=== PATIENT | male | born 1970 | race Caucasian/White ===

== ENCOUNTER 2020-03-19 19:59 | Emergency (ER) | payer MEDICARE, MEDICAID ==
[~2020-03-19] VITALS: Ht 177.8 cm; Wt 63.0 kg
[2020-03-19] MEDS ORDERED: OLANZAPINE 10 MG/VIAL IM ONE ×2 (21:30→23:30)
[2020-03-19 22:26] LABS: *AMPHETAMINES SCREEN URINE NEGATIVE (NEGATIVE); *BARBITURATES SCREEN URINE NEGATIVE (NEGATIVE); *BENZODIAZEPINES SCREEN URINE NEGATIVE (NEGATIVE); *COCAINE SCREEN URINE NEGATIVE (NEGATIVE); CANNABINOID URINE SCREEN NEGATIVE (NEGATIVE)
[2020-03-19 22:27] LABS: METHADONE URINE SCREEN NEGATIVE (NEGATIVE); OPIATES URINE SCREEN NEGATIVE (NEGATIVE); PHENCYCLIDINE URINE SCREEN NEGATIVE (NEGATIVE)
[2020-03-19] MEDS ORDERED: HALOPERIDOL LACTATE 5MG/ML VIAL IM ONE (23:30)
[2020-03-20] MEDS ORDERED: HALOPERIDOL LACTATE 5MG/ML VIAL IM ONE (01:15)
[2020-03-20 01:52] LABS: BASOPHILS % 0.8 % (0.0-2.0); EOSINOPHILS % 0.9 % (0.0-5.0); HEMATOCRIT. 45.2 % (42.0-52.0); HEMOGLOBIN. 15.4 g/dL (14.0-18.0); LYMPHOCYTES % 24.2 % (20.0-50.0); MEAN CORPUSCULAR HEMOGLOBIN 30.7 pg (28.0-32.0); MEAN PLATELET VOLUME 7.9 fl (7.4-10.4); MONOCYTES % 13.4 % (2.0-8.0); NEUTROPHILS % 60.7 % (40.0-76.0); PLATELET 255 x1000/uL (130-400); RED BLOOD CELL COUNT 5.03 mill/uL (4.7-6.1); RED CELL DISTRIBUTION WIDTH 14.4 % (11.6-14.6)
[2020-03-20 01:59] LABS: CHLORIDE 106 mEq/L (98-107)
[2020-03-20 02:03] LABS: ETHANOL BLOOD < 10 mg/dL
[2020-03-20] MEDS ORDERED: DIPHENHYDRAMINE 50MG/ML VIAL IM ONE (03:00)
[2020-03-20] MEDS ORDERED: KETOROLAC 60MG/2ML VIAL IM ONE (05:15)
[2020-03-20] MEDS: OLANZAPINE 10MG TABLET PO SCH ×2 (10:15→22:29)
[2020-03-20] MEDS ORDERED: LORAZEPAM 1MG TABLET PO ONE ×2 (10:15→10:30)
[2020-03-20] MEDS ORDERED: ARIPIPRAZOLE 2MG TABLET PO NR (17:00)
[2020-03-20] MEDS ORDERED: LORAZEPAM 2MG/ML CPJ IM NR (18:15)
[2020-03-20] MEDS ORDERED: HALOPERIDOL LACTATE 5MG/ML VIAL IM NR (18:15)
[2020-03-20] MEDS ORDERED: DIPHENHYDRAMINE 50MG/ML VIAL IM NR (18:15)
[2020-03-20] MEDS ORDERED: OLANZAPINE 10 MG/VIAL IM ONE (21:45)
[2020-03-21] MEDS ORDERED: HALOPERIDOL LACTATE 5MG/ML VIAL IM ONE (01:30)
[2020-03-21] MEDS ORDERED: KETAMINE HCL 50 MG/ML 10ML IM ONE ×3 (01:30→13:30)
[2020-03-21] MEDS ORDERED: IBUPROFEN 200MG TABLET PO ONE (10:45)
[2020-03-21] MEDS ORDERED: IBUPROFEN 600MG TABLET PO ONE (20:45)
[2020-03-21] MEDS ORDERED: OLANZAPINE 10 MG/VIAL IM ONE (21:30)
[2020-03-22] MEDS ORDERED: DIPHENHYDRAMINE 50MG CAPSULE PO ONE (00:30)
[2020-03-22] MEDS ORDERED: DIPHENHYDRAMINE 50MG/ML VIAL IM PRN (01:30)
[2020-03-22] MEDS ORDERED: HALOPERIDOL LACTATE 5MG/ML VIAL IM ONE (01:30)
[2020-03-22] MEDS ORDERED: IBUPROFEN 600MG TABLET PO STA ×2 (08:35→08:48)
[2020-03-22] MEDS: OLANZAPINE 10MG TABLET PO SCH (08:54)
[2020-03-22] MEDS ORDERED: LORAZEPAM 2MG/ML CPJ IM STA (12:22)
[2020-03-22] MEDS ORDERED: OLANZAPINE 10 MG/VIAL IM ONE (12:30)
[2020-03-22 14:13] LABS: CLARITY URINE CLEAR (CLEAR); COLOR URINE YELLOW (YELLOW); KETONES URINE NEGATIVE (NEGATIVE); LEUKOCYTE ESTERASE URINE NEGATIVE (NEGATIVE); NITRITE URINE NEGATIVE (NEGATIVE); OCCULT BLOOD URINE NEGATIVE (NEGATIVE); PROTEIN URINE NEGATIVE (NEGATIVE); SPECIFIC GRAVITY URINE 1.013 (1.005-1.030)
[2020-03-22] MEDS: DIVALPROEX SODIUM 250MG ER TABLET PO SCH ×2 (15:27→18:06)
[2020-03-22] MEDS ORDERED: LORAZEPAM 1MG TABLET PO SCH (17:00)
[2020-03-22] MEDS ORDERED: ARIPIPRAZOLE 5MG TABLET PO SCH (17:00)
[2020-03-22] MEDS ORDERED: ZIPRASIDONE MESYLATE 20MG/VIAL IM ONE ×2 (21:15→23:45)
[2020-03-22] MEDS ORDERED: LORAZEPAM 2MG/ML CPJ IM ONE (23:45)
[2020-03-23] MEDS ORDERED: DIVALPROEX SODIUM 250MG ER TABLET PO SCH (02:15)
[2020-03-23] MEDS ORDERED: DIPHENHYDRAMINE 50MG/ML VIAL IM ONE (04:45)
[2020-03-23] MEDS ORDERED: MORPHINE SULFATE 10 MG/ML CPJ IM ONE (04:45)
[2020-03-23] MEDS: DIVALPROEX SODIUM 250MG DR TABLET PO SCH ×3 (05:17→13:15)
[2020-03-23] MEDS ORDERED: ARIPIPRAZOLE 5MG TABLET PO SCH (09:00)
[2020-03-23] MEDS ORDERED: LORAZEPAM 1MG TABLET PO SCH (09:00)
[2020-03-23] MEDS ORDERED: IBUPROFEN 600MG TABLET PO STA (14:08)
[2020-03-23 15:30] VITALS: BP 116/80
== END 2020-03-23 16:05 | disposition home or self-care (01) ==
LOC: ER 19:59
DX: F31.2 Bipolar disorder, current episode manic severe with psychotic features (principal); S01.01XA Laceration without foreign body of scalp, initial encounter; M25.512 Pain in left shoulder; Y04.2XXA Assault by strike against or bumped into by another person, initial encounter; Y93.89 Activity, other specified; Y92.89 Other specified places as the place of occurrence of the external cause; R45.1 Restlessness and agitation; Z11.59 Encounter for screening for other viral diseases; I10 Essential (primary) hypertension; F10.10 Alcohol abuse, uncomplicated; G31.89 Other specified degenerative diseases of nervous system; Y90.0 Blood alcohol level of less than 20 mg/100 ml; Z78.1 Physical restraint status; Z75.1 Person awaiting admission to adequate facility elsewhere; Z91.14 Patient's other noncompliance with medication regimen
CPT/HCPCS: 29105; 36415; 70450; 73030; 73090; 73110; 80305; 93005; 96372; 99285; J1200; J1630; J1885; J2060; J2270; J3486; J3490; Q0163